=== PATIENT | male | born 2005 | race Caucasian/White ===

== ENCOUNTER 2023-01-28 15:32 | Emergency (ER) | payer MEDICAID ==
[~2023-01-28] VITALS: Ht 177.8 cm; Wt 72.7 kg
[~2023-01-28 15:32] MED LIST: ARIP5TAB37 PO; FLUO10CA24 PO
[2023-01-28 15:39] VITALS: BP 121/72
[2023-01-28] MEDS ORDERED: ONDANSETRON HCL 4 MG/2 ML VIAL IVP ONE (15:45)
[2023-01-28] MEDS ORDERED: MORPHINE SULFATE 4 MG/ML SYRINGE IVP ONE (15:45)
[2023-01-28] MEDS ORDERED: PERTUSS(ACELL),DIPH,TET VAC/PF 0.5 ML SYRINGE IM. ONE (15:45)
[2023-01-28 15:48] LABS: BASOPHILS % (AUTO) 0.9 % (0.0-2.0); EOSINOPHILS % (AUTO) 1.8 % (1.0-6.0); HEMATOCRIT 43.9 % (41-53); HEMOGLOBIN 14.5 g/dL (13.5-17.5); LYMPHOCYTES # (AUTO) 1.4 K/uL (1.0-4.8); LYMPHOCYTES % (AUTO) 29.5 % (22.0-44.0); MEAN CORPUSCULAR HEMOGLOBIN 31.7 pg (26.0-34.0); MEAN CORPUSCULAR HGB CONC 33.1 G/dL (31.0-37.0); MEAN CORPUSCULAR VOLUME 96 fL (80-100); MONOCYTES # (AUTO) 0.4 K/uL (0.1-1.0); MONOCYTES % (AUTO) 8.2 % (2.0-9.0); NEUTROPHILS # (AUTO) 2.8 K/uL (1.8-7.7); NEUTROPHILS % (AUTO) 59.6 % (40.0-70.0); PLATELET COUNT (AUTO) 231 K/uL (150-450); RED BLOOD CELL COUNT(AUTO) 4.59 MIL/uL (4.50-5.90); RED CELL DISTRIBUTION WIDTH 13.8 % (11.5-14.5)
[2023-01-28 15:59] LABS: ANION GAP 12 mmol/L (8-16); CALCIUM, TOTAL 9.4 mg/dL (8.8-10.5); CARBON DIOXIDE 23 mmol/L (22-29); CHLORIDE 103 mmol/L (98-107); CREATININE 0.94 mg/dL (0.60-1.30); GLOMERULAR FILTR. RATE CALC > 60 mL/min (>60); GLUCOSE,RANDOM 122 mg/dL (70-110); POTASSIUM 3.3 mmol/L (3.5-5.1); SODIUM SERUM 138 mmol/L (136-145); UREA NITROGEN, BLOOD 12 mg/dL (7-18)
[2023-01-28] MEDS ORDERED: CeFAZolin 2 GM/DEXTROSE 50 ML IV ONE (16:00)
[2023-01-28 16:05] LABS: ALANINE AMINOTRANSFERASE 21 U/L (12-78); ALBUMIN 4.6 g/dL (3.4-5.0); ALKALINE PHOSPHATASE 112 U/L (46-116); ASPARTATE AMINOTRANSFERASE 24 U/L (15-37); BILIRUBIN,TOTAL 0.8 mg/dL (0.1-1.0); TOTAL PROTEIN, SERUM 7.8 g/dL (6.4-8.2)
== END 2023-01-28 16:07 | disposition short-term general hospital (02) ==
LOC: EMS 15:33
DX: S31.010A Laceration without foreign body of lower back and pelvis without penetration into retroperitoneum, initial encounter (principal); S00.83XA Contusion of other part of head, initial encounter; F41.9 Anxiety disorder, unspecified; Y08.09XA Assault by strike by other specified type of sport equipment, initial encounter; Y93.89 Activity, other specified; Y92.89 Other specified places as the place of occurrence of the external cause; Y99.8 Other external cause status
CPT/HCPCS: 99291; 96365; 71045; 96375; 80053; 85025; 86850; 86900; 86901; 36415; 90715; 90471; J0690 ×2; J2270; J2405

== ENCOUNTER 2023-11-01 02:00 | Emergency (ER) | payer MEDICAID ==
[~2023-11-01] VITALS: Ht 175.3 cm; Wt 68.2 kg
[2023-11-01 02:17] VITALS: BP 123/65; PULSE 75; RESP 22; TEMP 97.7
== END 2023-11-01 02:49 | disposition left against medical advice (07) ==
LOC: EMS 02:02
DX: R06.02 Shortness of breath (principal); R11.2 Nausea with vomiting, unspecified; Z53.21 Procedure and treatment not carried out due to patient leaving prior to being seen by health care provider
CPT/HCPCS: 99281; Z7502